=== PATIENT | female | born 1990 | race African-American/Black ===

== ENCOUNTER 2025-05-02 00:42 | Emergency (ER) | payer OTHER ==
[~2025-05-02] VITALS: Ht 172.7 cm; Wt 117.9 kg
[2025-05-02 04:06] LABS: PLATELET COUNT (AUTO) 248 K/uL (150-450); RED BLOOD CELL COUNT(AUTO) 4.43 MIL/uL (4.0-5.2); RED CELL DISTRIBUTION WIDTH 12.5 % (11.5-15.0); WHITE BLOOD COUNT (AUTO) 12.2 K/uL (4.3-11.0)
[2025-05-02 04:20] LABS: CALCIUM, SERUM 9.1 mg/dL (8.5-10.1); CREATININE 1.1 mg/dL (0.6-1.3); SODIUM SERUM 138 mmol/L (136-145); UREA NITROGEN, BLOOD 9 mg/dL (7-18)
[2025-05-02 04:32] LABS: ASPARTATE AMINOTRANSFERASE 16 U/L (15-37); NT-PRO BNP 62 pg/mL (0-125); TOTAL PROTEIN, SERUM 7.5 g/dL (6.4-8.2)
[2025-05-02 06:01] VITALS: BP 127/72; TEMP 98.2; O2SAT 98
== END 2025-05-02 06:02 | disposition home or self-care (01) ==
LOC: ER 01:16
DX: R55 Syncope and collapse (principal); R05.9 Cough, unspecified; R10.2 Pelvic and perineal pain; R06.02 Shortness of breath
CPT/HCPCS: 36415; 71045-TC; 80048-TC; 80076-TC; 82962-TC; 83880; 84484-TC; 84702-TC; 85025-TC